=== PATIENT | female | born 2000 | race Two or more races ===

== ENCOUNTER 2022-12-17 08:59 | Emergency (ER) | payer MEDICAID, OTHER ==
[~2022-12-17] VITALS: Ht 172.7 cm; Wt 94.0 kg
[2022-12-17 09:24] VITALS: O2SAT 98
[2022-12-17 10:00] VITALS: BP 120/72; PULSE 90; RESP 18; O2SAT 98
[2022-12-17] MEDS ORDERED: IBUP-1456 PO (10:02)
== END 2022-12-17 10:13 | disposition home or self-care (01) ==
LOC: ER 08:59
DX: S83.92XA Sprain of unspecified site of left knee, initial encounter (principal); W22.8XXA Striking against or struck by other objects, initial encounter; Y93.89 Activity, other specified; Y92.832 Beach as the place of occurrence of the external cause; Y99.8 Other external cause status
CPT/HCPCS: 73562